=== PATIENT | female | born 1965 | race Caucasian/White ===

== ENCOUNTER 2017-04-29 19:39 | Emergency (ER) | payer OTHER ==
[2017-04-29] MEDS ORDERED: SODIUM CHLORIDE 0.9% 1,000 ML IV STA ×2 (20:48)
--- NOTE | 2017-04-29 20:51 | ED ---
General Adult HPI - General Source: patient, family, RN notes reviewed Mode of arrival: ambulatory Limitations: no limitations <Gino Manzo - Last Filed: 04/29/17 23:27> <Dorian Levin - Last Filed: 04/30/17 04:23> - General Chief complaint: Vaginal Bleeding Stated complaint: Female Time Seen by Provider: 04/29/17 20:43 - History of Present Illness Initial comments: Patient's a 51-year-old female who presents emergency room today with chief complaint of vaginal bleeding. She does admit that she has not had a period for 3 months but began bleeding again one week ago. States been much heavier over the last 5 days. States she is passing large clots. She denies any other complaints or symptoms. Admits to history of fibroids. Patient denies any recent fever, chills, shortness of breath, chest pain, back pain, abdominal pain , nausea or vomiting, numbness or tingling, dysuria or hematuria, constipation or diarrhea, headaches or visual changes, or any other complaints. (Gino Manzo) - Related Data Home Medications Medication Instructions Recorded Confirmed No Known Home Medications [No 04/29/17 04/29/17 Known Home Medications] Allergies Allergy/AdvReac Type Severity Reaction Status Date / Time No Known Allergies Allergy Verified 04/29/17 20:49 Review of Systems ROS Other: All systems not noted in ROS Statement are negative. <Gino Manzo - Last Filed: 04/29/17 23:27> ROS Other: All systems not noted in ROS Statement are negative. <Dorian Levin - Last Filed: 04/30/17 04:23> ROS Statement: Those systems with pertinent positive or pertinent negative responses have been documented in the HPI. Past Medical History Additional Past Medical History / Comment(s): Anemia History of Any Multi-Drug Resistant Organisms: None Reported Past Surgical History: No Surgical Hx Reported Past Psychological History: No Psychological Hx Reported Smoking Status: Former smoker Past Alcohol Use History: None Reported Past Drug Use History: None Reported <Gino Manzo - Last Filed: 04/29/17 23:27> General Exam Limitations: no limitations <Gino Manzo - Last Filed: 04/29/17 23:27> <Dorian Levin - Last Filed: 04/30/17 04:23> - General Exam Comments Initial Comments: General: The patient is awake and alert, in no distress, and does not appear acutely ill. Eye: Pupils are equal, round and reactive to light, extra-ocular movements are intact. No nystagmus. There is normal conjunctiva bilaterally. No signs of icterus. Ears, nose, mouth and throat: There are moist mucous membranes and no oral lesions. Neck: The neck is supple, there is no tenderness or JVD. Cardiovascular: There is a regular rate and rhythm. No murmur, rub or gallop is appreciated. Respiratory: Lungs are clear to auscultation, respirations are non-labored, breath sounds are equal. No wheezes, stridor, rales, or rhonchi. Gastrointestinal: Soft, non-distended, non-tender abdomen without masses or organomegaly noted. There is no rebound or guarding present. No CVA tenderness. Bowel sounds are unremarkable. Musculoskeletal: Normal ROM, no tenderness. Strength 5/5. Sensation intact. Pulses equal bilaterally 2+. Neurological: A&O x 3. CN II-XII intact, There are no obvious motor or sensory deficits. Coordination appears grossly intact. Speech is normal. Skin: Skin is warm and dry and no rashes or lesions are noted. Psychiatric: Cooperative, appropriate mood & affect, normal judgment. (Gino Manzo) Medical Decision Making - Lab Data Result diagrams: 04/29/17 20:55 04/29/17 20:55 <Gino Manzo - Last Filed: 04/29/17 23:27> - Lab Data Result diagrams: 04/29/17 20:55 04/29/17 20:55 <Dorian Levin - Last Filed: 04/30/17 04:23> - Medical Decision Making Patient's ultrasound reviewed and shows 1. Multiple intramural leiomyomas. 2. Septated left ovarian cyst with benign appearance. 3. No evidence of ovarian torsion. Right ovary not visualized. Patient labs reviewed does show 9.1 hemoglobin. Patient does admit to a history of anemia. She denies any lightheadedness or dizziness. Denies any other complaints or symptoms at this time. Case was discussed and seen by attending physician . She advised return if any symptoms increase or worsen or for any other concerns. States understanding and is in agreement. (Gino Manzo) 51-year-old female presenting with vaginal bleeding. Hemoglobin is 9.1, ultrasound shows uterine fibroids. No known baseline hemoglobin for comparison. Patient is asymptomatic, with stable vital signs. She is encouraged to follow up with [facility], return to the emergency department with worsening vaginal bleeding or the development of signs of severe anemia which were discussed with the patient. (Dorian Levin) - Lab Data Lab Results 04/29/17 04/29/17 04/29/17 Range/Units 20:55 20:55 20:55 WBC 9.5 (3.8-10.6) k/uL RBC 3.91 L (4.30-5.90) m/uL Hgb 9.1 L (13.0-17.5) gm/dL Hct 29.1 L (39.0-53.0) % MCV 74.4 L (80.0-100.0) fL MCH 23.2 L (25.0-35.0) pg MCHC 31.1 (31.0-37.0) g/dL RDW 16.7 H (11.5-15.5) % Plt Count 308 (150-450) k/uL Neutrophils % 62 % Lymphocytes % 25 % Monocytes % 8 % Eosinophils % 1 % Basophils % 0 % Neutrophils # 5.9 (1.3-7.7) k/uL Lymphocytes # 2.4 (1.0-4.8) k/uL Monocytes # 0.7 (0-1.0) k/uL Eosinophils # 0.1 (0-0.7) k/uL Basophils # 0.0 (0-0.2) k/uL Hypochromasia Marked Anisocytosis Slight Microcytosis Slight PT 10.8 (9.0-12.0) sec INR 1.1 (<1.2) APTT 26.0 (22.0-30.0) sec Sodium 139 (137-145) mmol/L Potassium 3.7 (3.5-5.1) mmol/L Chloride 108 H (98-107) mmol/L Carbon Dioxide 24 (22-30) mmol/L Anion Gap 7 mmol/L BUN 7 L (9-20) mg/dL Creatinine 0.61 L (0.66-1.25) mg/dL Est GFR (MDRD) Af Amer >60 (>60 ml/min/1.73 sqM) Est GFR (MDRD) Non-Af >60 (>60 ml/min/1.73 sqM) Glucose 85 (74-99) mg/dL Calcium 8.7 (8.4-10.2) mg/dL Total Bilirubin 0.3 (0.2-1.3) mg/dL AST 19 (17-59) U/L ALT 26 (21-72) U/L Alkaline Phosphatase 52 (38-126) U/L Total Protein 6.8 (6.3-8.2) g/dL Albumin 4.0 (3.5-5.0) g/dL Disposition Time of Disposition: 23:28 <Gino Manzo - Last Filed: 04/29/17 23:27> <Dorian Levin - Last Filed: 04/30/17 04:23> Clinical Impression: Leiomyoma Disposition: HOME SELF-CARE Condition: Good Instructions: Uterine Fibroids (ED) Additional Instructions: Please follow-up with [facility] over the next 1-2 days. Please return to emergency room if the symptoms increase or worsen or for any other concerns. Referrals: Willi Saldivar MD [Primary Care Provider] - 1-2 days
[2017-04-29 21:20] LABS: Anisocytosis Slight; Basophils % (A) 0 %; CH 21.8; CHCM 29.5; Eosinophils # (A) 0.1 k/uL (0-0.7); Eosinophils % (A) 1 %; HDW 3.19; Hypochromasia Marked; Luc # (Auto) 0.31; Luc % (Auto) 3; Lymphocytes # (A) 2.4 k/uL (1.0-4.8); Lymphocytes % (A) 25 %; MCH 23.2 pg (25.0-35.0); MCHC 31.1 g/dL (31.0-37.0); MCV 74.4 fL (80.0-100.0); Mean Platelet Volume 6.9; Microcytosis Slight; Monocytes # (A) 0.7 k/uL (0-1.0); Monocytes % (A) 8 %; Neutrophils # (A) 5.9 k/uL (1.3-7.7); Neutrophils % (A) 62 %; RDW 16.7 % (11.5-15.5); WBC 9.5 k/uL (3.8-10.6); WBC (Perox) 9.53
[2017-04-29 21:22] LABS: INR 1.1 (<1.2)
[2017-04-29 21:23] LABS: Prothrombin Time 10.8 sec (9.0-12.0)
[2017-04-29 21:27] LABS: Alkaline Phosphatase 52 U/L (38-126); Anion Gap 7 mmol/L; Calcium 8.7 mg/dL (8.4-10.2); Carbon Dioxide 24 mmol/L (22-30); Chloride 108 mmol/L (98-107); Glucose 85 mg/dL (74-99); Non-African American GFR(MDRD) >60 (>60 ml/min/1.73 sqM); Potassium 3.7 mmol/L (3.5-5.1); Sodium 139 mmol/L (137-145); Total Bilirubin 0.3 mg/dL (0.2-1.3); Total Protein 6.8 g/dL (6.3-8.2)
--- NOTE | 2017-04-29 22:47 | US ---
EXAM: US Pelvis Complete, Transabdominal US Pelvis, Transvaginal CLINICAL HISTORY: Reason: bleeding TECHNIQUE: Real-time transabdominal and transvaginal pelvic ultrasound (complete) with image documentation. Transvaginal imaging was used for better evaluation of the endometrium and adnexa. COMPARISON: No relevant prior studies available. FINDINGS: Uterus/cervix: Anteverted uterus measuring 12.2 x 7.3 x 8.6 cm with multiple isoechoic round masses which are likely leiomyomas. The largest of these is 3.5 x 3.2 x 3.9 cm. The endometrial stripe was not visualized due to distortion by leiomyomas. Right ovary: Right ovary was obscured by bowel gas. Normal blood flow. Left ovary: Left ovary is 5.3 x 3.0 x 5.0 cm and contains a large oval septated cyst measuring 4.5 x 2.6 x 4.8 cm. Left ovary demonstrates arterial and venous waveforms on duplex imaging. Normal blood flow. Free fluid: No evidence of free fluid. Bladder: Unremarkable as visualized. Wall is normal thickness for degree of distention. IMPRESSION: 1. Multiple intramural leiomyomas as above. 2. Septated left ovarian cyst with benign appearance. Follow-up imaging may be performed in 2-3 cycles if clinically warranted. 3. No evidence of left ovarian torsion. Right ovary was not visualized.
[2017-04-29 23:36] VITALS: BP 140/65; PULSE 74; RESP 18; TEMP 97
[2017-05-08 07:40] LABS: HCT 29.1 % (34.0-46.0); HGB 9.1 gm/dL (11.4-16.0); RBC 3.91 m/uL (3.80-5.40)
[2017-05-08 07:41] LABS: ALT 26 U/L (9-52); AST 19 U/L (14-36); Blood Urea Nitrogen 7 mg/dL (7-17)
== END 2017-04-29 23:35 | disposition home or self-care (01) ==
LOC: EDSEX 19:39 → EC 19:39
DX: D21.9 Benign neoplasm of connective and other soft tissue, unspecified (principal); Z87.891 Personal history of nicotine dependence
CPT/HCPCS: 36415; 76830; 80053; 85025; 85610; 85730; 93976; 96360; 99284

== ENCOUNTER 2019-07-19 13:47 | Emergency (ER) | payer OTHER, SELFPAY ==
[2019-07-19 13:52] VITALS: PULSE 54; RESP 18; TEMP 97.5
[2019-07-19 14:26] VITALS: BP 136/69
--- NOTE | 2019-07-19 14:28 | ED ---
General Adult HPI - General Source: patient, RN notes reviewed Mode of arrival: ambulatory Limitations: no limitations <Kenny Larson - Last Filed: 07/19/19 14:24> <Della Beckett - Last Filed: 07/21/19 00:49> - General Chief complaint: Recheck/Abnormal Lab/Rx Stated complaint: Hypertensive Time Seen by Provider: 07/19/19 14:08 - History of Present Illness Initial comments: 54-year-old female with a past medical history of anemia, hypertension presents to the emergency department for a chief complaint of high blood pressure. Patient states that she has been increasingly anxious over the past several weeks. States she recently started on Lexapro for this. Patient states today she checked her blood pressure at home and it was 140. States that she checked it again it was 160 systolic. States she was unsure what she should do so came to the emergency department. Patient states she is taking her amlodipine and Coreg as directed. Patient denies any symptoms whatsoever. Denies shortness of breath, headache, back pain, weakness. States she usually follows with her primary care provider for her hypertension.Patient has no other complaints at this time including shortness of breath, chest pain, abdominal pain, nausea or vomiting, headache, or visual changes. (Kenny Larson) - Related Data Home Medications Medication Instructions Recorded Confirmed No Known Home Medications 04/29/17 04/29/17 Allergies Allergy/AdvReac Type Severity Reaction Status Date / Time No Known Allergies Allergy Verified 07/19/19 13:52 Review of Systems ROS Other: All systems not noted in ROS Statement are negative. <Kenny Larson - Last Filed: 07/19/19 14:24> ROS Other: All systems not noted in ROS Statement are negative. <Della Beckett - Last Filed: 07/21/19 00:49> ROS Statement: Those systems with pertinent positive or pertinent negative responses have been documented in the HPI. Past Medical History Additional Past Medical History / Comment(s): Anemia History of Any Multi-Drug Resistant Organisms: None Reported Past Surgical History: No Surgical Hx Reported Past Psychological History: No Psychological Hx Reported Smoking Status: Former smoker Past Alcohol Use History: None Reported Past Drug Use History: None Reported <Kenny Larson - Last Filed: 07/19/19 14:24> General Exam Limitations: no limitations General appearance: alert, in no apparent distress Head exam: Present: atraumatic, normocephalic, normal inspection Eye exam: Present: normal appearance, PERRL, EOMI. Absent: scleral icterus, conjunctival injection, periorbital swelling ENT exam: Present: normal exam, mucous membranes moist Neck exam: Present: normal inspection, full ROM. Absent: tenderness, meningismus, lymphadenopathy Respiratory exam: Present: normal lung sounds bilaterally. Absent: respiratory distress, wheezes, rales, rhonchi, stridor Cardiovascular Exam: Present: regular rate, normal rhythm, normal heart sounds. Absent: systolic murmur, diastolic murmur, rubs, gallop, clicks GI/Abdominal exam: Present: soft, normal bowel sounds. Absent: distended, tenderness, guarding, rebound, rigid Neurological exam: Present: alert Psychiatric exam: Present: normal affect, normal mood, anxious <Kenny Larson - Last Filed: 07/19/19 14:24> Course Vital Signs 07/19/19 07/19/19 13:49 14:25 Temperature 97.5 F L Pulse Rate 54 L Respiratory 18 Rate Blood Pressure 150/58 136/69 O2 Sat by Pulse 100 Oximetry Medical Decision Making <Kenny Larson - Last Filed: 07/19/19 14:24> <Della Beckett - Last Filed: 07/21/19 00:49> - Medical Decision Making On presentation to the emergency department patient's blood pressure is 150/58. She does have a history of hypertension and is on amlodipine as well as Coreg. She did take her medications as directed. Patient states she checked her blood pressure several times at home which caused her anxiety to increase. Patient denies any symptoms whatsoever. I rechecked her blood pressure after explained to patient that she should only be checking her blood pressure 1 time per day in making a log and following up with primary care. On repeat blood pressure is 136/69. Patient states she feels much better about it at this time. Patient will continue to take her medications. She will follow up with her primary care provider in one to 2 days. She will keep a log of her blood pressure and take it one time at the same time daily. She will return if she has any worsening symptoms. (Kenny Larson) I was available for consultation in the emergency department. The history and physical exam were done by the midlevel provider. I was consulted for this patients care. I reviewed the case with the midlevel provider and based on their presentation of the patient, I agree with the assessment, medical decision making and plan of care as documented. Chart was dictated using [employer] dictation software. Attempts were made to correct any dictation errors however some typographical errors may persist. (Della Beckett) Disposition Is patient prescribed a controlled substance at d/c from ED?: No Time of Disposition: 14:27 <Kenny Larson - Last Filed: 07/19/19 14:24> <Della Beckett - Last Filed: 07/21/19 00:49> Clinical Impression: Hypertension, History of hypertension, Anxiety Disposition: HOME SELF-CARE Condition: Good Instructions (If sedation given, give patient instructions): Hypertension (ED) Additional Instructions: Please take medications as directed. Take 1 time daily to check blood pressure and make a log of this. Follow-up with primary care in 1-2 days. If you have any worsening symptoms return to the emergency department. Referrals: Willi Saldivar MD [Primary Care Provider] - 1-2 days
== END 2019-07-19 14:36 | disposition home or self-care (01) ==
LOC: EC 13:47
DX: I10 Essential (primary) hypertension (principal); F41.9 Anxiety disorder, unspecified; Z79.899 Other long term (current) drug therapy; Z87.891 Personal history of nicotine dependence
CPT/HCPCS: 99282

== ENCOUNTER 2019-09-19 16:18 | Emergency (ER) | payer OTHER ==
[2019-09-19 16:22] VITALS: TEMP 98.4
--- NOTE | 2019-09-19 16:29 | ED ---
General Adult HPI - General Chief complaint: Dizziness Stated complaint: Dizziness Time Seen by Provider: 09/19/19 16:29 Source: patient Mode of arrival: ambulatory Limitations: no limitations - History of Present Illness Initial comments: Patient presents to the ED with her for evaluation. Patient states that she developed rather sudden onset dizziness a little less than 2 hours ago while looking in the mirror. Patient states that her dizziness is worse when she turns or moves her head in any way. She admits to having a slight fullness s ensation in her bilateral ears, but she denies having any ear pain or any pain at all. Patient denies trauma or injury, fever or chills, headache, focal numbness/weakness/neuro deficit, visual changes, speech difficulty, sore throat, nasal/sinus congestion, cough or cold symptoms, chest pain, dyspnea, palpitations, syncope, abdominal pain, nausea/vomiting/diarrhea, bloody or melanotic stool, dysuria or urinary symptoms, or any other symptoms or complaints. - Related Data Previous Rx's Medication Instructions Recorded Meclizine [Antivert] 25 mg PO TID PRN #10 tab 09/19/19 Allergies Allergy/AdvReac Type Severity Reaction Status Date / Time No Known Allergies Allergy Verified 09/19/19 16:21 Review of Systems ROS Statement: Those systems with pertinent positive or pertinent negative responses have been documented in the HPI. ROS Other: All systems not noted in ROS Statement are negative. Past Medical History Past Medical History: Hypertension Additional Past Medical History / Comment(s): Anemia History of Any Multi-Drug Resistant Organisms: None Reported Past Surgical History: No Surgical Hx Reported Past Psychological History: Anxiety, Depression Smoking Status: Former smoker Past Alcohol Use History: None Reported Past Drug Use History: None Reported General Exam Limitations: no limitations General appearance: alert, in no apparent distress Head exam: Present: atraumatic, normocephalic Eye exam: Present: normal appearance, PERRL, EOMI. Absent: nystagmus ENT exam: Present: mucous membranes moist, TM's normal bilaterally Neck exam: Present: other (Trachea is in midline) Respiratory exam: Present: normal lung sounds bilaterally. Absent: respiratory distress, wheezes, rales, rhonchi Cardiovascular Exam: Present: regular rate, normal rhythm, normal heart sounds, other (Normal radial pulses bilaterally) GI/Abdominal exam: Present: soft. Absent: distended, tenderness Extremities exam: Present: full ROM. Absent: tenderness, pedal edema, calf tenderness Neurological exam: Present: alert, oriented X3, CN II-XII intact. Absent: motor sensory deficit Psychiatric exam: Present: normal affect, normal mood Skin exam: Present: warm, dry, intact, normal color Course Vital Signs 09/19/19 09/19/19 09/19/19 16:19 16:42 17:00 Temperature 98.4 F Pulse Rate 67 62 61 Respiratory 16 18 14 Rate Blood Pressure 145/74 143/72 132/76 Blood Pressure [Right Arm Sitting] Blood Pressure [Right Arm Standing] Blood Pressure [Right Arm Supine] O2 Sat by Pulse 99 100 100 Oximetry 09/19/19 09/19/19 09/19/19 17:10 18:00 19:00 Temperature Pulse Rate 60 63 Respiratory 16 16 Rate Blood Pressure 134/72 133/69 Blood Pressure 143/72 [Right Arm Sitting] Blood Pressure 142/72 [Right Arm Standing] Blood Pressure 140/52 [Right Arm Supine] O2 Sat by Pulse 100 100 Oximetry - Reevaluation(s) Reevaluation #1: 09/19/19 19:01 Patient states that her dizziness has now improved, and she has been ambulatory in the ED without difficulty. Patient denies development of any new symptoms while in the ED. Patient remains alert and breathing comfortably. Patient's vital signs are reassuring. Patient and family are aware of the patient's test results, and patient feels comfortable going home with her family at this time. EKG Findings - EKG Comments: EKG Findings:: Normal sinus rhythm, ventricular rate of 68 bpm, no ectopy, normal IL and QRS intervals, normal QT interval, normal axis, no ST or T-wave abnormality Medical Decision Making - Medical Decision Making Patient reports that her dizziness was fairly sudden in onset and worse when turning her head. I suspect that her dizziness is likely secondary to positional vertigo. Patient's ED workup, including head CT, EKG and lab work, is fairly unremarkable. I do not suspect an emergent medical condition. Patient was counseled about dizziness, and she was clearly explained return and follow-up instructions. She was instructed to return to the ED should she develop new or worsening symptoms. She was also instructed to follow up closely with her primary care provider. She feels comfortable with this plan. - Lab Data Result diagrams: 09/19/19 16:47 09/19/19 16:47 Lab Results 09/19/19 09/19/19 09/19/19 Range/Units 16:47 16:47 16:47 WBC 7.4 (3.8-10.6) k/uL RBC 4.36 (3.80-5.40) m/uL Hgb 13.7 (11.4-16.0) gm/dL Hct 40.7 (34.0-46.0) % MCV 93.4 (80.0-100.0) fL MCH 31.5 (25.0-35.0) pg MCHC 33.7 (31.0-37.0) g/dL RDW 12.8 (11.5-15.5) % Plt Count 258 (150-450) k/uL Neutrophils % 57 % Lymphocytes % 29 % Monocytes % 8 % Eosinophils % 2 % Basophils % 1 % Neutrophils # 4.2 (1.3-7.7) k/uL Lymphocytes # 2.1 (1.0-4.8) k/uL Monocytes # 0.6 (0-1.0) k/uL Eosinophils # 0.2 (0-0.7) k/uL Basophils # 0.1 (0-0.2) k/uL Sodium 138 (137-145) mmol/L Potassium 4.0 (3.5-5.1) mmol/L Chloride 106 (98-107) mmol/L Carbon Dioxide 25 (22-30) mmol/L Anion Gap 7 mmol/L BUN 16 (7-17) mg/dL Creatinine 0.58 (0.52-1.04) mg/dL Est GFR (CKD-EPI)AfAm >90 (>60 ml/min/1.73 sqM) Est GFR (CKD-EPI)NonAf >90 (>60 ml/min/1.73 sqM) Glucose 90 (74-99) mg/dL Calcium 9.0 (8.4-10.2) mg/dL Total Bilirubin 0.4 (0.2-1.3) mg/dL AST 47 H (14-36) U/L ALT 52 H (4-34) U/L Alkaline Phosphatase 74 (38-126) U/L Troponin I <0.012 (0.000-0.034) ng/mL Total Protein 7.3 (6.3-8.2) g/dL Albumin 4.3 (3.5-5.0) g/dL - Radiology Data Radiology results: report reviewed (Noncontrast head CT is negative) Disposition Clinical Impression: Dizziness Narrative: Suspected positional vertigo Disposition: HOME SELF-CARE Condition: Stable Instructions (If sedation given, give patient instructions): Vertigo (ED), Dizziness (ED) Additional Instructions: Return to the ER immediately should you develop any significant pain, a fever, shortness of breath, vomiting, increased dizziness, fainting, or new or worsening symptoms. Follow up closely with your primary care provider. Prescriptions: Meclizine [Antivert] 25 mg PO TID PRN #10 tab PRN Reason: Vertigo Is patient prescribed a controlled substance at d/c from ED?: No Referrals: Willi Saldivar MD [Primary Care Provider] - 1-2 days Time of Disposition: 19:06
[2019-09-19] MEDS ORDERED: diphenhydrAMINE 50 MG/ML 1 ML VIAL IVP STA (16:37)
[2019-09-19] MEDS ORDERED: SODIUM CHLORIDE 0.9% 1,000 ML IV STA (16:37)
[2019-09-19] MEDS ORDERED: MECLIZINE 12.5 MG TAB PO STA (16:37)
[2019-09-19 17:00] LABS: Basophils # (A) 0.1 k/uL (0-0.2); Basophils % (A) 1 %; Eosinophils # (A) 0.2 k/uL (0-0.7); Eosinophils % (A) 2 %; HCT 40.7 % (34.0-46.0); HGB 13.7 gm/dL (11.4-16.0); Lymphocytes # (A) 2.1 k/uL (1.0-4.8); Lymphocytes % (A) 29 %; MCH 31.5 pg (25.0-35.0); MCHC 33.7 g/dL (31.0-37.0); MCV 93.4 fL (80.0-100.0); Monocytes # (A) 0.6 k/uL (0-1.0); Monocytes % (A) 8 %; Neutrophils # (A) 4.2 k/uL (1.3-7.7); Neutrophils % (A) 57 %; Platelet Count 258 k/uL (150-450); RBC 4.36 m/uL (3.80-5.40); RDW 12.8 % (11.5-15.5); WBC 7.4 k/uL (3.8-10.6)
[2019-09-19 17:09] LABS: ALT 52 U/L (4-34); AST 47 U/L (14-36); African American GFR (CKD) >90 (>60 ml/min/1.73 sqM); Albumin 4.3 g/dL (3.5-5.0); Alkaline Phosphatase 74 U/L (38-126); Anion Gap 7 mmol/L; Blood Urea Nitrogen 16 mg/dL (7-17); Carbon Dioxide 25 mmol/L (22-30); Chloride 106 mmol/L (98-107); Glucose 90 mg/dL (74-99); Non-African American GFR(CKD) >90 (>60 ml/min/1.73 sqM); Sodium 138 mmol/L (137-145); Total Bilirubin 0.4 mg/dL (0.2-1.3); Total Protein 7.3 g/dL (6.3-8.2)
--- NOTE | 2019-09-19 17:24 | CT ---
EXAMINATION TYPE: CT brain wo con DATE OF EXAM: 09/19/2019 COMPARISON: None HISTORY: dizziness CT DLP: 1024.4 mGycm Automated exposure control for dose reduction was used. Ventricles have normal size. There is no mass effect nor midline shift. There is no sign of intracran ial hemorrhage. Calvarium is intact. There is no evidence of cerebral edema. IMPRESSION: Normal head CT scan.
[2019-09-19 19:04] VITALS: BP 133/69; PULSE 63; RESP 16
== END 2019-09-19 19:10 | disposition home or self-care (01) ==
LOC: EC 16:18
DX: R42 Dizziness and giddiness (principal); I10 Essential (primary) hypertension; Z87.891 Personal history of nicotine dependence
CPT/HCPCS: 36415; 93005; 80053; 84484; 85025; 70450; 99284; 96374; 96361 ×2; J1200

== ENCOUNTER → 2019-09-23 | Outpatient (CLI) | payer OTHER ==
--- NOTE | 2019-10-07 07:54 | P.PN ---
Progress Note - Text Progress Note Date: 10/07/19 This is the report on a seven-day event monitor. Baseline EKG showed sinus rhythm. Patient did not report any symptoms. Episodes of paroxysmal atrial tachycardia at a rate of about 105, 210 were noted, which are brief and consisting of maximal 8 beats. No ventricular arrhythmias are detected. Final impression: #1. Sinus rhythm. #2 brief episodes of atrial tachycardia at a rate of about 105 to 110 consisting of maximum of 8 beats
--- NOTE | 2019-10-07 07:58 | P.PN ---
Progress Note - Text Progress Note Date: 10/07/19 This is a report on the 14th day event monitor. Baseline rhythm is sinus. Patient remained in sinus rhythm with episodes of for sinus tachycardia and occasional APCs. Occasional PVCs detected. Patient complained of racing of the heart, shortness of breath, irregular heart beats, not correlating with any significant cardiac arrhythmias except revealed APC. Final impression: #1. Sinus rhythm with episodes of sinus tachycardia number claudication APCs. #3 occasional PVCs. #4. Patient's symptoms of shortness of breath and palpitation did not could detect any significant cardiac events
--- NOTE | 2019-10-09 13:48 | EM ---
This is the report on a seven-day event monitor. Baseline EKG showed sinus rhythm. Patient did not report any symptoms. Episodes of paroxysmal atrial tachycardia at a rate of about 105, 210 were noted, which are brief and consisting of maximal 8 beats. No ventricular arrhythmias are detected. Final impression: #1. Sinus rhythm. #2 brief episodes of atrial tachycardia at a rate of about 105 to 110 consisting of maximum of 8 beats MTDD
== END | disposition home or self-care (01) ==
LOC: RADECHMAIN 11:21
PROVIDERS: ATTEND Family Medicine
DX: R00.2 Palpitations (principal)
CPT/HCPCS: 93270

== ENCOUNTER 2021-07-06 10:33 | Emergency (ER) | payer OTHER ==
[2021-07-06 10:37] VITALS: RESP 18
[2021-07-06] MEDS ORDERED: CASIRIVIMAB (REGN10933) (EUA) 600 MG, IMDEVIMAB (REGN10987) (EUA) 600 MG in SODIUM CHLO... IVPB ONE (11:30)
[2021-07-06] MEDS ORDERED: SODIUM CHLORIDE 0.9% 50 ML IVPB ONE (12:00)
--- NOTE | 2021-07-06 12:29 | ED ---
URI HPI - General Chief Complaint: Upper Respiratory Infection Stated Complaint: antibodies Time Seen by Provider: 07/06/21 10:38 Source: patient, RN notes reviewed Mode of arrival: ambulatory Limitations: no limitations - History of Present Illness Initial Comments: Patient is a 56-year-old female with history of hypertension, presenting to the emergency department requesting Covid antibodies. Patient states her symptoms started 4 days ago on Saturday, she had body aches and chills then woke up the next morning with a fever. She got tested at her doctor's office 2 days ago and today resulted in positive. Her doctor recommended coming in to the ER for covid antibodies. Patient had a fever for about 1-2 days, none in the last 24 hours. She states her cough has also been improving. She denies any shortness of breath or chest pain, no nausea or vomiting, no diarrhea or abdominal pain. She states she feels fairly well. She denies history of asthma or COPD, she is a former smoker. She has no further complaints. Patient's vital signs are stable upon arrival. - Related Data Home Medications Medication Instructions Recorded Confirmed Carvedilol [Coreg] 6.25 mg PO AC-BID 07/06/21 07/06/21 Escitalopram Oxalate [Lexapro] 10 mg PO HS 07/06/21 07/06/21 Multivitamins, Thera [Multivitamin 1 tab PO DAILY 07/06/21 07/06/21 (formulary)] amLODIPine BESYLATE/BENAZEPRIL 1 cap PO DAILY 07/06/21 07/06/21 [amLODIPine BESYLATE/BENAZEPRIL 10-20 MG] Allergies Allergy/AdvReac Type Severity Reaction Status Date / Time No Known Allergies Allergy Verified 07/06/21 10:54 Review of Systems ROS Statement: Those systems with pertinent positive or pertinent negative responses have been documented in the HPI. ROS Other: All systems not noted in ROS Statement are negative. Past Medical History Past Medical History: Hypertension Additional Past Medical History / Comment(s): Anemia History of Any Multi-Drug Resistant Organisms: None Reported Past Surgical History: No Surgical Hx Reported Past Psychological History: Anxiety, Depression Smoking Status: Former smoker Past Alcohol Use History: None Reported Past Drug Use History: None Reported General Exam - General Exam Comments Initial Comments: GENERAL: Patient is well-developed and well-nourished. Patient is nontoxic and in no acute distress. HEAD: Atraumatic, normocephalic. EYES: Pupils equal round and reactive to light, extraocular movements intact, sclera anicteric, conjunctiva are normal. Eyelids were unremarkable. ENT: Nares patent, oropharynx clear without exudates. Moist mucous membranes. NECK: Normal range of motion, supple without lymphadenopathy or JVD. LUNGS: Unlabored respirations. Breath sounds clear to auscultation bilaterally and equal. No wheezes rales or rhonchi. HEART: Regular rate and rhythm without murmurs, rubs or gallops. ABDOMEN: Soft, nontender, normoactive bowel sounds. No guarding, no rebound. No masses appreciated. MUSCULOSKELETAL: Normal extremities with adequate strength and normal range of motion, no pitting or edema. No clubbing or cyanosis. NEUROLOGICAL: Patient is alert and oriented x 3. SKIN: Warm, Dry, normal turgor, no rashes or lesions noted. Limitations: no limitations Course Vital Signs 07/06/21 10:35 Temperature 99.3 F Pulse Rate 70 Respiratory 18 Rate Blood Pressure 113/54 O2 Sat by Pulse 96 Oximetry Medical Decision Making - Medical Decision Making Patient is a 56-year-old female with history of hypertension, presenting for Covid antibodies. She's been symptomatic for 4 days, her test results a positive today. Her vitals are stable, exam is unremarkable. Patient received Covid antibodies, no adverse side effects. She is stable for discharge. She is in agreement with this plan of care. Return parameters were discussed with her to verbalized understanding. Case discussed with Dr. Levin. Disposition Clinical Impression: Viral respiratory illness, COVID-19 Disposition: HOME SELF-CARE Condition: Stable Instructions (If sedation given, give patient instructions): Coronavirus Disease 2019 (COVID-19) Additional Instructions: Please return to the Emergency Department if symptoms worsen or any other concerns. Follow-up with your primary care physician as needed. Is patient prescribed a controlled substance at d/c from ED?: No Referrals: Willi Saldivar MD [Primary Care Provider] - 1-2 days Time of Disposition: 12:29
[2021-07-06 12:43] VITALS: BP 127/67; PULSE 74; TEMP 98.8
== END 2021-07-06 12:43 | disposition home or self-care (01) ==
LOC: EC 10:33
DX: U07.1 COVID-19 (principal); B34.9 Viral infection, unspecified; I10 Essential (primary) hypertension; F41.9 Anxiety disorder, unspecified; F32.9 Major depressive disorder, single episode, unspecified; Z87.891 Personal history of nicotine dependence
CPT/HCPCS: 99283; 96365; 96361; Q0243

== ENCOUNTER 2021-07-06 16:25 | Emergency (ER) | payer OTHER ==
[2021-07-06 16:34] VITALS: BP 125/63; PULSE 104; RESP 20; TEMP 103.2
[2021-07-06] MEDS ORDERED: ACETAMINOPHEN TAB 500 MG TAB PO STA (16:44)
[2021-07-06] MEDS ORDERED: SODIUM CHLORIDE 0.9% 1,000 ML IV ONE (16:44)
--- NOTE | 2021-07-06 16:57 | ED ---
General Adult HPI - General Chief complaint: Recheck/Abnormal Lab/Rx Stated complaint: fever/shakes/high BP/here today Time Seen by Provider: 07/06/21 16:43 Source: patient, RN notes reviewed, old records reviewed Mode of arrival: ambulatory Limitations: no limitations - History of Present Illness Initial comments: 56-year-old female presenting for reevaluation of Covid symptoms. Patient developed fever and chills. She had last taken Tylenol yesterday evening. She was in the emergency department earlier today and received monoclonal antibodies. She thought that her symptoms should improve however she felt worse. No dyspnea. No significant cough. She's had some nausea without significant vomiting. She had fever and chills myalgias. She's been sent tonight for approximately 4 days. - Related Data Home Medications Medication Instructions Recorded Confirmed Carvedilol [Coreg] 6.25 mg PO AC-BID 07/06/21 07/06/21 Dexamethasone 6 mg PO DIRECTED 07/06/21 07/06/21 Escitalopram Oxalate [Lexapro] 10 mg PO HS 07/06/21 07/06/21 Multivitamins, Thera [Multivitamin 1 tab PO DAILY 07/06/21 07/06/21 (formulary)] amLODIPine BESYLATE/BENAZEPRIL 1 cap PO DAILY 07/06/21 07/06/21 [amLODIPine BESYLATE/BENAZEPRIL 10-20 MG] Allergies Allergy/AdvReac Type Severity Reaction Status Date / Time No Known Allergies Allergy Verified 07/06/21 17:11 Review of Systems ROS Statement: Those systems with pertinent positive or pertinent negative responses have been documented in the HPI. ROS Other: All systems not noted in ROS Statement are negative. Past Medical History Past Medical History: Hypertension Additional Past Medical History / Comment(s): Anemia,. Covid History of Any Multi-Drug Resistant Organisms: None Reported Past Surgical History: No Surgical Hx Reported Past Psychological History: Anxiety, Depression Smoking Status: Former smoker Past Alcohol Use History: None Reported Past Drug Use History: None Reported General Exam Limitations: no limitations General appearance: alert, in no apparent distress Head exam: Present: atraumatic, normocephalic Eye exam: Present: normal appearance, PERRL ENT exam: Present: mucous membranes dry Neck exam: Present: normal inspection. Absent: tenderness, meningismus Respiratory exam: Present: normal lung sounds bilaterally. Absent: respiratory distress, wheezes Cardiovascular Exam: Present: regular rate, normal rhythm GI/Abdominal exam: Present: soft. Absent: distended, tenderness, guarding, rebound Extremities exam: Present: normal inspection, normal capillary refill. Absent: pedal edema Neurological exam: Present: alert, oriented X3, CN II-XII intact. Absent: motor sensory deficit Psychiatric exam: Present: normal affect, normal mood Skin exam: Present: warm, dry, intact. Absent: cyanosis, diaphoretic Course Vital Signs 07/06/21 16:26 Temperature 103.2 F H Pulse Rate 104 H Respiratory 20 Rate Blood Pressure 125/63 O2 Sat by Pulse 98 Oximetry Medical Decision Making - Medical Decision Making 56-year-old female with coronavirus, fever. Patient well-appearing. She does have a high fever 103. This is contributing to her symptoms of fever or chills. Chest x-ray is clear. She has normal CBC, normal CMP with some mild transaminitis. She is instructed to take Tylenol Motrin for fevers. Additionally she should take zinc, vitamin C, vitamin D. Return parameters were discussed and she will monitor her respiratory status at home. She will quarantine. - Lab Data Result diagrams: 07/06/21 16:56 07/06/21 16:56 Lab Results 07/06/21 07/06/21 Range/Units 16:56 16:56 WBC 7.2 (3.8-10.6) k/uL RBC 4.50 (3.80-5.40) m/uL Hgb 13.7 (11.4-16.0) gm/dL Hct 41.8 (34.0-46.0) % MCV 92.8 (80.0-100.0) fL MCH 30.5 (25.0-35.0) pg MCHC 32.8 (31.0-37.0) g/dL RDW 12.9 (11.5-15.5) % Plt Count 189 (150-450) k/uL MPV 7.1 Neutrophils % 79 % Lymphocytes % 14 % Monocytes % 5 % Eosinophils % 1 % Basophils % 0 % Neutrophils # 5.7 (1.3-7.7) k/uL Lymphocytes # 1.0 (1.0-4.8) k/uL Monocytes # 0.4 (0-1.0) k/uL Eosinophils # 0.1 (0-0.7) k/uL Basophils # 0.0 (0-0.2) k/uL Sodium 138 (137-145) mmol/L Potassium 3.6 (3.5-5.1) mmol/L Chloride 102 (98-107) mmol/L Carbon Dioxide 28 (22-30) mmol/L Anion Gap 8 mmol/L BUN 13 (7-17) mg/dL Creatinine 0.69 (0.52-1.04) mg/dL Est GFR (CKD-EPI)AfAm >90 (>60 ml/min/1.73 sqM) Est GFR (CKD-EPI)NonAf >90 (>60 ml/min/1.73 sqM) Glucose 114 H (74-99) mg/dL Calcium 9.1 (8.4-10.2) mg/dL Total Bilirubin 0.3 (0.2-1.3) mg/dL AST 38 H (14-36) U/L ALT 42 H (4-34) U/L Alkaline Phosphatase 72 (38-126) U/L Total Protein 7.3 (6.3-8.2) g/dL Albumin 4.2 (3.5-5.0) g/dL Disposition Clinical Impression: COVID-19 Disposition: HOME SELF-CARE Condition: Good Instructions (If sedation given, give patient instructions): Coronavirus Disease 2019 (COVID-19) Is patient prescribed a controlled substance at d/c from ED?: No Referrals: Willi Saldivar MD [Primary Care Provider] - 1-2 days Time of Disposition: 17:24
[2021-07-06 17:05] LABS: Basophils % (A) 0 %; Eosinophils # (A) 0.1 k/uL (0-0.7); Eosinophils % (A) 1 %; HCT 41.8 % (34.0-46.0); HGB 13.7 gm/dL (11.4-16.0); Lymphocytes % (A) 14 %; MCH 30.5 pg (25.0-35.0); MCHC 32.8 g/dL (31.0-37.0); MCV 92.8 fL (80.0-100.0); Mean Platelet Volume 7.1; Monocytes # (A) 0.4 k/uL (0-1.0); Monocytes % (A) 5 %; Neutrophils # (A) 5.7 k/uL (1.3-7.7); Neutrophils % (A) 79 %; Platelet Count 189 k/uL (150-450); RDW 12.9 % (11.5-15.5); WBC 7.2 k/uL (3.8-10.6)
--- NOTE | 2021-07-06 17:11 | XR ---
EXAMINATION TYPE: XR chest 1V portable DATE OF EXAM: 07/06/2021 HISTORY: Shortness of breath. COMPARISON: None. TECHNIQUE: Single view of the chest is submitted. FINDINGS: Demonstrated are scattered senescent parenchymal change. There is no evidence for focal infiltrate. The heart is stable. Hilar and mediastinal structures are within normal limits. Degenerative changes are seen of the dorsal spine. IMPRESSION: 1. Chronic changes without evidence for acute pulmonary disease.
[2021-07-06 17:15] LABS: ALT 42 U/L (4-34); AST 38 U/L (14-36); African American GFR (CKD) >90 (>60 ml/min/1.73 sqM); Albumin 4.2 g/dL (3.5-5.0); Alkaline Phosphatase 72 U/L (38-126); Anion Gap 8 mmol/L; Blood Urea Nitrogen 13 mg/dL (7-17); Calcium 9.1 mg/dL (8.4-10.2); Carbon Dioxide 28 mmol/L (22-30); Chloride 102 mmol/L (98-107); Glucose 114 mg/dL (74-99); Non-African American GFR(CKD) >90 (>60 ml/min/1.73 sqM); Potassium 3.6 mmol/L (3.5-5.1); Sodium 138 mmol/L (137-145); Total Bilirubin 0.3 mg/dL (0.2-1.3); Total Protein 7.3 g/dL (6.3-8.2)
== END 2021-07-06 17:48 | disposition home or self-care (01) ==
LOC: EC 16:25
DX: U07.1 COVID-19 (principal); I10 Essential (primary) hypertension; F41.9 Anxiety disorder, unspecified; F32.9 Major depressive disorder, single episode, unspecified; Z87.891 Personal history of nicotine dependence
CPT/HCPCS: 36415; 71045; 80053; 85025; 96360; 96361; 99283